=== PATIENT | male | born 1965 | race Caucasian/White ===

== ENCOUNTER 2023-02-13 09:07 | Inpatient (IN) | payer OTHER ==
[~2023-02-13] VITALS: Ht 177.8 cm; Wt 78.2 kg
[2023-02-13] VITALS (39 sets, daily range): BP systolic 100–151; BP diastolic 37–111; PULSE 22–65; RESP 13–55; O2SAT 95–100
[2023-02-13] MEDS ORDERED: ATROPINE 1MG SYG IVP ONE (09:30)
[2023-02-13 09:51] LABS: BASOPHILS # (AUTO) 0.06 K/uL (0.00-0.20); BASOPHILS % (AUTO) 0.7 % (0.0-5.0); EOSINOPHILS % (AUTO) 3.4 % (0.0-8.0); HEMATOCRIT 32.6 % (42-54); IMMATURE GRANULOCYTE ABSOLUTE 0.03 K/uL (0-1); LYMPHOCYTES # (AUTO) 2.4 K/uL (1.0-4.8); LYMPHOCYTES % (AUTO) 27.5 % (21.0-51.0); MEAN CORPUSCULAR HEMOGLOBIN 32.2 pg (27.0-33.0); MEAN CORPUSCULAR HGB CONC 32.8 g/dL (32.0-36.0); MEAN CORPUSCULAR VOLUME 98.2 fL (79-99); MONOCYTES # (AUTO) 0.7 K/uL (0.1-1.0); MONOCYTES % (AUTO) 8.4 % (3.0-13.0); NEUTROPHILS # (AUTO) 5.3 K/uL (1.8-7.7); NEUTROPHILS % (AUTO) 59.7 % (40.0-77.0); PLATELET COUNT (AUTO) 179 K/uL (130-400); RED BLOOD CELL COUNT(AUTO) 3.32 MIL/uL (4.50-6.20); RED CELL DISTRIBUTION WIDTH 11.8 % (11.0-15.5); WHITE BLOOD COUNT (AUTO) 8.8 K/uL (4.8-10.8)
[2023-02-13] MEDS ORDERED: ATROPINE 1MG SYG IVP SCH (10:00)
[2023-02-13 10:02] LABS: CREATININE 3.9 mg/dL (0.5-1.5); POTASSIUM 4.5 mmol/L (3.5-5.1)
[2023-02-13] MEDS ORDERED: CLOM25CA2 PO (10:03)
[2023-02-13] MEDS ORDERED: LITH300C3 PO (10:03)
[2023-02-13] MEDS ORDERED: METO200T49 PO (10:03)
[2023-02-13] MEDS ORDERED: ATOR10TA69 PO (10:03)
[2023-02-13] MEDS ORDERED: LISI40TA9 PO (10:03)
[2023-02-13] MEDS ORDERED: HYDR25TA PO (10:03)
[2023-02-13 10:15] LABS: THYROID STIMULATING HORMONE 11.46 uIU/mL (0.36-3.74)
[2023-02-13 11:38] LABS: APPEARANCE,URINE CLEAR (CLEAR); BILIRUBIN,URINE NEGATIVE (NEGATIVE); COLOR,URINE LIGHT-YELLOW (YELLOW); GLUCOSE, URINE (UA) NEGATIVE (NEGATIVE); KETONES,URINE NEGATIVE (NEGATIVE); LEUKOCYTE ESTERASE ,URINE NEGATIVE Leu/uL (NEGATIVE); NITRATE,URINE NEGATIVE (NEGATIVE); OCCULT BLOOD,URINE NEGATIVE (NEGATIVE); PROTEIN,URINE NEGATIVE (NEGATIVE); UROBILINOGEN,URINE 0.2 mg/dL (0.2-1.0)
[2023-02-13 11:40] LABS: ADD UA MICROSCOPIC NO
[2023-02-13] MEDS ORDERED: PHARMACY COMMUNICATION MISC PRN (14:00)
[2023-02-13] MEDS ORDERED: LORAZEPAM 2 MG/ML 1 ML VIAL IVP PRN (14:00)
[2023-02-13] MEDS ORDERED: CHLORDIAZEPOXIDE HCL 25 MG CAP PO PRN (14:00)
[2023-02-13] MEDS ORDERED: LACTATED RINGERS 1000ML 1,000 ML IV SCH (14:30)
[2023-02-13 14:38] LABS: AMPHET/METH SCREEN,URINE NEGATIVE (NEGATIVE); BARBITURATE SCREEN, URINE NEGATIVE (NEGATIVE); BENZODIAZEPINES SCREEN,URINE NEGATIVE (NEGATIVE); CANNABINOID SCREEN,URINE NEGATIVE (NEGATIVE); COCAINE SCREEN,URINE NEGATIVE (NEGATIVE); OPIATE SCREEN,URINE NEGATIVE (NEGATIVE); PHENCYCLIDINE SCREEN,URINE NEGATIVE (NEGATIVE)
[2023-02-13] MEDS: THIAMINE HCL 100 MG, FOLIC ACID 1 MG, M.V.I. IV [ADULT] 10 ML in 0.9%NACL 1000ML 1,000 ML IV SCH (15:24)
[2023-02-13 17:04] LABS: ALBUMIN 3.4 g/dL (3.5-5.0); BILIRUBIN,DIRECT 0.2 mg/dL (0.0-0.3); BILIRUBIN,TOTAL 0.3 mg/dL (0.2-1.0); TOTAL PROTEIN, SERUM 6.9 g/dL (6.0-8.3)
[2023-02-13] MEDS ORDERED: CHLORDIAZEPOXIDE HCL 25 MG CAP PO SCH (21:00)
[2023-02-13] MEDS ORDERED: 0.9% NACL 500ML IV.SOLN 500 ML IV ONE (23:00)
[2023-02-13] MEDS ORDERED: DOPAMINE HCL 400 MG/D5%-WATER 250 ML IV PRN (23:00)
[2023-02-13] MEDS: 0.9%NACL 1000ML 1,000 ML IV SCH ×2 (23:26→23:27)
[2023-02-14] VITALS (121 sets, daily range): BP systolic 79–149; BP diastolic 29–97; PULSE 23–118; RESP 8–118; O2SAT 99–100
[2023-02-14 00:49] LABS: CREATININE 3.1 mg/dL (0.5-1.5); POTASSIUM 4.7 mmol/L (3.5-5.1)
[2023-02-14 00:56] LABS: ALBUMIN 3.2 g/dL (3.5-5.0); BILIRUBIN,TOTAL 0.6 mg/dL (0.2-1.0); MAGNESIUM 2.8 mg/dL (1.80-2.40); TOTAL PROTEIN, SERUM 6.4 g/dL (6.0-8.3)
[2023-02-14 05:05] LABS: BASOPHILS # (AUTO) 0.05 K/uL (0.00-0.20); BASOPHILS % (AUTO) 0.6 % (0.0-5.0); EOSINOPHILS # (AUTO) 0.24 K/uL (0.00-0.70); EOSINOPHILS % (AUTO) 2.9 % (0.0-8.0); IMMATURE GRANULOCYTE ABSOLUTE 0.03 K/uL (0-1); LYMPHOCYTES # (AUTO) 1.9 K/uL (1.0-4.8); LYMPHOCYTES % (AUTO) 22.9 % (21.0-51.0); MEAN CORPUSCULAR HEMOGLOBIN 32.9 pg (27.0-33.0); MEAN CORPUSCULAR HGB CONC 33.3 g/dL (32.0-36.0); MEAN CORPUSCULAR VOLUME 98.7 fL (79-99); MONOCYTES # (AUTO) 0.7 K/uL (0.1-1.0); MONOCYTES % (AUTO) 8.2 % (3.0-13.0); NEUTROPHILS # (AUTO) 5.3 K/uL (1.8-7.7); PLATELET COUNT (AUTO) 178 K/uL (130-400); RED BLOOD CELL COUNT(AUTO) 3.04 MIL/uL (4.50-6.20); RED CELL DISTRIBUTION WIDTH 11.8 % (11.0-15.5); WHITE BLOOD COUNT (AUTO) 8.2 K/uL (4.8-10.8)
[2023-02-14 05:26] LABS: BILIRUBIN,TOTAL 0.5 mg/dL (0.2-1.0); CREATININE 2.8 mg/dL (0.5-1.5); MAGNESIUM 2.6 mg/dL (1.80-2.40); POTASSIUM 4.3 mmol/L (3.5-5.1); TOTAL PROTEIN, SERUM 6.2 g/dL (6.0-8.3)
[2023-02-14 07:40] LABS: BILIRUBIN,TOTAL 0.5 mg/dL (0.2-1.0); CREATININE 2.7 mg/dL (0.5-1.5); MAGNESIUM 2.5 mg/dL (1.80-2.40); POTASSIUM 3.9 mmol/L (3.5-5.1); TOTAL PROTEIN, SERUM 6.1 g/dL (6.0-8.3)
[2023-02-14] MEDS: FAMOTIDINE 20MG VIAL IV SCH (09:07)
[2023-02-14] MEDS ORDERED: POTASSIUM CHLORIDE 10MEQ/100ML 100 ML IV PRN ×2 (12:00)
[2023-02-14] MEDS ORDERED: PHARMACY COMMUNICATION MISC PRN (12:00)
[2023-02-14] MEDS: LORAZEPAM 2 MG/ML 1 ML VIAL IVP PRN ×5 (12:32→23:27)
[2023-02-14] MEDS: SODIUM BICARB 150 MEQ in DEXTROSE 5%-WATER 1,000 ML IV SCH (12:34)
[2023-02-14] MEDS: 0.9%NACL 1000ML 1,000 ML IV SCH ×2 (12:34→22:35)
[2023-02-14] MEDS: THIAMINE HCL 100 MG/ML 2ML VIAL IVP SCH (12:34)
[2023-02-14] MEDS: HEPARIN 5,000 UNIT VIAL SQ SCH ×2 (13:01→23:18)
[2023-02-14] MEDS: THIAMINE HCL 100 MG, FOLIC ACID 1 MG, M.V.I. IV [ADULT] 10 ML in 0.9%NACL 1000ML 1,000 ML IV SCH (15:46)
[2023-02-14 16:17] LABS: CREATININE 2.4 mg/dL (0.5-1.5); POTASSIUM 4.1 mmol/L (3.5-5.1)
[2023-02-14 18:42] LABS: CREATININE 2.3 mg/dL (0.5-1.5)
[2023-02-15] VITALS (106 sets, daily range): BP systolic 96–178; BP diastolic 55–100; PULSE 39–95; RESP 14–61; O2SAT 96–100
[2023-02-15] MEDS: LORAZEPAM 2 MG/ML 1 ML VIAL IVP PRN ×4 (01:29→10:31)
[2023-02-15 03:21] LABS: BASOPHILS # (AUTO) 0.02 K/uL (0.00-0.20); BASOPHILS % (AUTO) 0.3 % (0.0-5.0); EOSINOPHILS # (AUTO) 0.13 K/uL (0.00-0.70); EOSINOPHILS % (AUTO) 1.9 % (0.0-8.0); HEMATOCRIT 28.9 % (42-54); IMMATURE GRANULOCYTE ABSOLUTE 0.03 K/uL (0-1); LYMPHOCYTES % (AUTO) 14.3 % (21.0-51.0); MEAN CORPUSCULAR HEMOGLOBIN 32.9 pg (27.0-33.0); MEAN CORPUSCULAR HGB CONC 33.2 g/dL (32.0-36.0); MONOCYTES # (AUTO) 0.6 K/uL (0.1-1.0); MONOCYTES % (AUTO) 8.2 % (3.0-13.0); NEUTROPHILS # (AUTO) 5.2 K/uL (1.8-7.7); NEUTROPHILS % (AUTO) 74.9 % (40.0-77.0); PLATELET COUNT (AUTO) 164 K/uL (130-400); RED BLOOD CELL COUNT(AUTO) 2.92 MIL/uL (4.50-6.20); RED CELL DISTRIBUTION WIDTH 11.7 % (11.0-15.5); WHITE BLOOD COUNT (AUTO) 6.9 K/uL (4.8-10.8)
[2023-02-15 03:34] LABS: % IRON SATURATION 17.4 % (30-44)
[2023-02-15 03:44] LABS: ALBUMIN 2.9 g/dL (3.5-5.0); BILIRUBIN,TOTAL 0.4 mg/dL (0.2-1.0); CREATININE 2.1 mg/dL (0.5-1.5); MAGNESIUM 2.3 mg/dL (1.80-2.40); PHOSPHORUS 3.7 mg/dL (2.5-4.9); POTASSIUM 3.9 mmol/L (3.5-5.1); URIC ACID 11.1 mg/dL (2.6-7.2)
[2023-02-15] MEDS ORDERED: CHLORDIAZEPOXIDE HCL 25 MG CAP PO PRN (08:00)
[2023-02-15] MEDS ORDERED: PHARMACY COMMUNICATION MISC PRN (08:00)
[2023-02-15] MEDS: AMLODIPINE 5 MG TAB PO SCH (08:17)
[2023-02-15] MEDS: FAMOTIDINE 20MG VIAL IV SCH (08:17)
[2023-02-15] MEDS: THIAMINE HCL 100 MG/ML 2ML VIAL IVP SCH ×2 (08:18→16:29)
[2023-02-15] MEDS: 0.9%NACL 1000ML 1,000 ML IV SCH ×3 (08:18→22:56)
[2023-02-15] MEDS: SODIUM BICARB 150 MEQ in DEXTROSE 5%-WATER 1,000 ML IV SCH (08:18)
[2023-02-15] MEDS: FOLIC ACID 5 MG/ML VIAL IV SCH (08:29)
[2023-02-15] MEDS ORDERED: DEXMEDETOMIDINE 400MCG/NS100ML IV SCH (10:30)
[2023-02-15] MEDS: HEPARIN 5,000 UNIT VIAL SQ SCH (11:36)
[2023-02-15] MEDS: THIAMINE HCL 100 MG, FOLIC ACID 1 MG, M.V.I. IV [ADULT] 10 ML in 0.9%NACL 1000ML 1,000 ML IV SCH (16:28)
[2023-02-15] MEDS ORDERED: DIAZEPAM 5 MG/ML 2 ML SYG IV SCH (16:30)
[2023-02-15 19:26] LABS: CREATININE 1.8 mg/dL (0.5-1.5)
[2023-02-15] MEDS: CHLORDIAZEPOXIDE HCL 25 MG CAP PO SCH (21:00)
[2023-02-15] MEDS: DEXMEDETOMIDINE 400MCG/NS100ML IV SCH (21:48)
[2023-02-16] VITALS (29 sets, daily range): BP systolic 72–192; BP diastolic 26–106; PULSE 34–84; RESP 14–48; O2SAT 95–100
[2023-02-16] MEDS: HEPARIN 5,000 UNIT VIAL SQ SCH ×2 (00:36→11:14)
[2023-02-16] MEDS: THIAMINE HCL 100 MG/ML 2ML VIAL IVP SCH ×3 (00:37→18:00)
[2023-02-16 06:38] LABS: BASOPHILS # (AUTO) 0.02 K/uL (0.00-0.20); BASOPHILS % (AUTO) 0.2 % (0.0-5.0); EOSINOPHILS # (AUTO) 0.01 K/uL (0.00-0.70); EOSINOPHILS % (AUTO) 0.1 % (0.0-8.0); HEMATOCRIT 29.9 % (42-54); IMMATURE GRANULOCYTE ABSOLUTE 0.06 K/uL (0-1); LYMPHOCYTES % (AUTO) 10.4 % (21.0-51.0); MEAN CORPUSCULAR HGB CONC 32.8 g/dL (32.0-36.0); MEAN CORPUSCULAR VOLUME 100.7 fL (79-99); MONOCYTES # (AUTO) 0.8 K/uL (0.1-1.0); MONOCYTES % (AUTO) 8.7 % (3.0-13.0); NEUTROPHILS # (AUTO) 7.6 K/uL (1.8-7.7); PLATELET COUNT (AUTO) 150 K/uL (130-400); RED BLOOD CELL COUNT(AUTO) 2.97 MIL/uL (4.50-6.20); RED CELL DISTRIBUTION WIDTH 11.9 % (11.0-15.5); WHITE BLOOD COUNT (AUTO) 9.5 K/uL (4.8-10.8)
[2023-02-16 06:43] LABS: ALANINE AMINOTRANSFERASE 24 U/L (12-78); ALCOHOL, BLOOD < 3 mg/dL (0-10); AMMONIA 22 umol/L (11-32); ASPARTATE AMINOTRANSFERASE 18 U/L (10-37); BILIRUBIN,TOTAL 0.5 mg/dL (0.2-1.0); CARBON DIOXIDE 24 mmol/L (21-32); CHLORIDE 113 mmol/L (101-111); CREATININE 1.7 mg/dL (0.5-1.5); GLOMERULAR FILTR. RATE CALC 46 mL/min (>90); GLUCOSE,RANDOM 159 mg/dL (70-105); POTASSIUM 3.9 mmol/L (3.5-5.1); SODIUM SERUM 146 mmol/L (136-145); TOTAL PROTEIN, SERUM 6.6 g/dL (6.0-8.3); UREA NITROGEN, BLOOD 20 mg/dL (7-18)
[2023-02-16] MEDS ORDERED: MORPHINE 2 MG SYG ONE (09:03)
[2023-02-16] MEDS ORDERED: MORPHINE 2 MG SYG IVP ONE (09:07)
[2023-02-16] MEDS: FOLIC ACID 5 MG/ML VIAL IV SCH (09:56)
[2023-02-16] MEDS: FAMOTIDINE 20MG VIAL IV SCH (09:56)
[2023-02-16] MEDS: HALOPERIDOL INJ 5 MG/ML VIAL IM SCH (09:57)
[2023-02-16] MEDS: CHLORDIAZEPOXIDE HCL 25 MG CAP PO SCH ×3 (10:03→20:10)
[2023-02-16] MEDS: 0.9%NACL 1000ML 1,000 ML IV SCH ×2 (10:03→18:00)
[2023-02-16] MEDS ORDERED: ATROPINE 1MG SYG IVP PRN (11:00)
[2023-02-16] MEDS: AMLODIPINE 5 MG TAB PO SCH (11:02)
[2023-02-16] MEDS: ATROPINE 1MG SYG IVP PRN (11:08)
[2023-02-16] MEDS: DEXMEDETOMIDINE 400MCG/NS100ML IV SCH ×2 (13:11→20:08)
[2023-02-16] MEDS: ONDANSETRON 4MG INJ IV PRN (14:04)
[2023-02-16] MEDS: ACETAMINOPHEN 500 MG TABLET PO PRN (14:04)
[2023-02-16] MEDS: MAGNESIUM 2GM PREMIX 50ML 50 ML IV PRN (15:09)
[2023-02-16] MEDS: IRON SUCROSE COMPLEX 300 MG in 0.9% NACL 250ML 250 ML IV SCH (15:23)
[2023-02-16] MEDS: DIAZEPAM 5 MG/ML 2 ML SYG IV SCH (18:35)
[2023-02-16] MEDS: HALOPERIDOL INJ 5 MG/ML VIAL IM PRN (21:04)
[2023-02-17] VITALS (30 sets, daily range): BP systolic 115–169; BP diastolic 55–92; PULSE 41–69; RESP 17–30; O2SAT 92–94
[2023-02-17] MEDS: THIAMINE HCL 100 MG/ML 2ML VIAL IVP SCH ×3 (00:14→16:32)
[2023-02-17] MEDS: HEPARIN 5,000 UNIT VIAL SQ SCH ×2 (00:14→13:13)
[2023-02-17] MEDS: DEXMEDETOMIDINE 400MCG/NS100ML IV SCH ×7 (00:31→22:04)
[2023-02-17] MEDS: ATROPINE 1MG SYG IVP PRN (01:19)
[2023-02-17] MEDS: 0.9%NACL 1000ML 1,000 ML IV SCH (02:19)
[2023-02-17] MEDS: DIAZEPAM 5 MG/ML 2 ML SYG IV SCH ×2 (03:07→10:20)
[2023-02-17 03:36] LABS: BASOPHILS # (AUTO) 0.03 K/uL (0.00-0.20); BASOPHILS % (AUTO) 0.2 % (0.0-5.0); EOSINOPHILS # (AUTO) 0.08 K/uL (0.00-0.70); EOSINOPHILS % (AUTO) 0.6 % (0.0-8.0); HEMATOCRIT 29.6 % (42-54); LYMPHOCYTES # (AUTO) 0.9 K/uL (1.0-4.8); LYMPHOCYTES % (AUTO) 7.6 % (21.0-51.0); MEAN CORPUSCULAR HEMOGLOBIN 32.7 pg (27.0-33.0); MEAN CORPUSCULAR HGB CONC 32.8 g/dL (32.0-36.0); MEAN CORPUSCULAR VOLUME 99.7 fL (79-99); MONOCYTES # (AUTO) 0.7 K/uL (0.1-1.0); MONOCYTES % (AUTO) 5.8 % (3.0-13.0); NEUTROPHILS # (AUTO) 10.5 K/uL (1.8-7.7); PLATELET COUNT (AUTO) 143 K/uL (130-400); RED BLOOD CELL COUNT(AUTO) 2.97 MIL/uL (4.50-6.20); RED CELL DISTRIBUTION WIDTH 11.9 % (11.0-15.5); WHITE BLOOD COUNT (AUTO) 12.4 K/uL (4.8-10.8)
[2023-02-17 03:52] LABS: ALBUMIN 2.6 g/dL (3.5-5.0); BILIRUBIN,TOTAL 0.6 mg/dL (0.2-1.0); CREATININE 1.6 mg/dL (0.5-1.5); MAGNESIUM 2.1 mg/dL (1.80-2.40); PHOSPHORUS 3.5 mg/dL (2.5-4.9); POTASSIUM 3.9 mmol/L (3.5-5.1); TOTAL PROTEIN, SERUM 6.4 g/dL (6.0-8.3)
[2023-02-17] MEDS: HALOPERIDOL INJ 5 MG/ML VIAL IM PRN (08:03)
[2023-02-17] MEDS: IRON SUCROSE COMPLEX 300 MG in 0.9% NACL 250ML 250 ML IV SCH (08:23)
[2023-02-17] MEDS: FAMOTIDINE 20MG VIAL IV SCH (08:23)
[2023-02-17] MEDS: CHLORDIAZEPOXIDE HCL 25 MG CAP PO SCH (08:24)
[2023-02-17] MEDS: FOLIC ACID 5 MG/ML VIAL IV SCH (08:24)
[2023-02-17] MEDS: AMLODIPINE 5 MG TAB PO SCH (08:24)
[2023-02-17] MEDS: HALOPERIDOL INJ 5 MG/ML VIAL IM SCH ×2 (08:55→13:14)
[2023-02-17] MEDS: ONDANSETRON 4MG INJ IV PRN (13:10)
[2023-02-17] MEDS ORDERED: CHLORDIAZEPOXIDE HCL 25 MG CAP PO SCH (15:00)
[2023-02-17] MEDS: DIAZEPAM 5 MG TABLET NG SCH (16:32)
[2023-02-17] MEDS ORDERED: HALOPERIDOL 1 MG TABLET ONE (20:29)
[2023-02-17] MEDS: HALOPERIDOL 1 MG TABLET NG SCH (22:00)
[2023-02-18] VITALS (25 sets, daily range): BP systolic 114–178; BP diastolic 47–112; PULSE 32–88; RESP 14–40; O2SAT 95–99
[2023-02-18] MEDS: DIAZEPAM 5 MG TABLET NG SCH ×3 (00:53→17:01)
[2023-02-18] MEDS: THIAMINE HCL 100 MG/ML 2ML VIAL IVP SCH ×2 (00:54→07:59)
[2023-02-18] MEDS: HEPARIN 5,000 UNIT VIAL SQ SCH ×2 (00:55→12:54)
[2023-02-18 04:10] LABS: HEMATOCRIT 31.7 % (42-54); MEAN CORPUSCULAR HEMOGLOBIN 32.9 pg (27.0-33.0); MEAN CORPUSCULAR HGB CONC 32.2 g/dL (32.0-36.0); MEAN CORPUSCULAR VOLUME 102.3 fL (79-99); RED BLOOD CELL COUNT(AUTO) 3.1 MIL/uL (4.50-6.20); RED CELL DISTRIBUTION WIDTH 12.1 % (11.0-15.5); WHITE BLOOD COUNT (AUTO) 10.2 K/uL (4.8-10.8)
[2023-02-18 04:20] LABS: CREATININE 1.6 mg/dL (0.5-1.5); MAGNESIUM 1.8 mg/dL (1.80-2.40); POTASSIUM 3.5 mmol/L (3.5-5.1)
[2023-02-18] MEDS: DEXMEDETOMIDINE 400MCG/NS100ML IV SCH (04:42)
[2023-02-18] MEDS: HALOPERIDOL 1 MG TABLET NG SCH ×3 (05:23→22:14)
[2023-02-18] MEDS: FAMOTIDINE 20MG VIAL IV SCH (07:58)
[2023-02-18] MEDS: AMLODIPINE 5 MG TAB PO SCH (07:59)
[2023-02-18] MEDS: HALOPERIDOL INJ 5 MG/ML VIAL IM PRN ×2 (09:22→17:27)
[2023-02-18] MEDS: IRON SUCROSE COMPLEX 300 MG in 0.9% NACL 250ML 250 ML IV SCH (09:32)
[2023-02-18] MEDS: CARVEDILOL 12.5 MG TABLET PO SCH ×2 (09:32→22:15)
[2023-02-18] MEDS ORDERED: POLYETHYLENE GLYCOL 3350 17 GM POWD.PACK PO ONE (13:00)
[2023-02-18] MEDS: ACETAMINOPHEN 500 MG TABLET PO PRN (13:40)
[2023-02-18] MEDS: LACTULOSE 20 GM/30 ML UDCUP PO PRN (17:27)
[2023-02-18] MEDS: POTASSIUM CHLORIDE 10% ELIXIR 20 MEQ/15 ML UDCUP PO PRN (17:31)
[2023-02-18] MEDS: MAGNESIUM 2GM PREMIX 50ML 50 ML IV PRN (17:34)
[2023-02-19] VITALS (26 sets, daily range): BP systolic 131–194; BP diastolic 72–115; PULSE 65–100; RESP 16–27; O2SAT 97–99
[2023-02-19] MEDS: DIAZEPAM 5 MG TABLET NG SCH ×4 (00:20→23:59)
[2023-02-19] MEDS: HEPARIN 5,000 UNIT VIAL SQ SCH ×3 (00:21→23:58)
[2023-02-19] MEDS: HALOPERIDOL INJ 5 MG/ML VIAL IM PRN ×2 (00:23→20:21)
[2023-02-19 04:35] LABS: BASOPHILS # (AUTO) 0.04 K/uL (0.00-0.20); BASOPHILS % (AUTO) 0.4 % (0.0-5.0); EOSINOPHILS # (AUTO) 0.34 K/uL (0.00-0.70); EOSINOPHILS % (AUTO) 3.7 % (0.0-8.0); HEMATOCRIT 30.8 % (42-54); IMMATURE GRANULOCYTE ABSOLUTE 0.12 K/uL (0-1); LYMPHOCYTES # (AUTO) 1.6 K/uL (1.0-4.8); LYMPHOCYTES % (AUTO) 17.1 % (21.0-51.0); MEAN CORPUSCULAR HEMOGLOBIN 32.3 pg (27.0-33.0); MEAN CORPUSCULAR HGB CONC 32.5 g/dL (32.0-36.0); MEAN CORPUSCULAR VOLUME 99.4 fL (79-99); MONOCYTES # (AUTO) 0.9 K/uL (0.1-1.0); MONOCYTES % (AUTO) 9.4 % (3.0-13.0); NEUTROPHILS # (AUTO) 6.2 K/uL (1.8-7.7); NEUTROPHILS % (AUTO) 68.1 % (40.0-77.0); NUCLEATED RED BLOOD CELLS 0.2 % (0.0-0.19); PLATELET COUNT (AUTO) 162 K/uL (130-400); RED CELL DISTRIBUTION WIDTH 12.1 % (11.0-15.5); WHITE BLOOD COUNT (AUTO) 9.2 K/uL (4.8-10.8)
[2023-02-19 04:45] LABS: ALBUMIN 2.6 g/dL (3.5-5.0); BILIRUBIN,TOTAL 0.6 mg/dL (0.2-1.0); CREATININE 1.6 mg/dL (0.5-1.5); PHOSPHORUS 3.4 mg/dL (2.5-4.9); POTASSIUM 3.6 mmol/L (3.5-5.1); TOTAL PROTEIN, SERUM 6.6 g/dL (6.0-8.3)
[2023-02-19] MEDS: HALOPERIDOL 1 MG TABLET NG SCH ×3 (05:40→22:14)
[2023-02-19] MEDS: FAMOTIDINE 20MG VIAL IV SCH (08:17)
[2023-02-19] MEDS: CARVEDILOL 12.5 MG TABLET PO SCH ×2 (08:18→20:22)
[2023-02-19] MEDS: POLYETHYLENE GLYCOL 3350 17 GM POWD.PACK PO SCH (08:18)
[2023-02-19] MEDS: AMLODIPINE 5 MG TAB PO SCH (08:19)
[2023-02-19 09:50] LABS: SARS-CoV-2, RNA, NAAT NEGATIVE SARS CoV-2 (NEGATIVE)
[2023-02-19 10:02] LABS: INFLUENZA TYPE A Negative For Type A (NEGATIVE); INFLUENZA TYPE B Negative For Type B (NEGATIVE)
[2023-02-19 13:01] LABS: CREATININE,URINE RANDOM 31 mg/dL (30-135); SODIUM,URINE RANDOM 131 mmol/l (40-220)
[2023-02-20] VITALS (32 sets, daily range): BP systolic 112–157; BP diastolic 58–91; PULSE 61–88; RESP 18–37; O2SAT 24–99
[2023-02-20 04:01] LABS: HEMATOCRIT 34.4 % (42-54); MEAN CORPUSCULAR HEMOGLOBIN 32.4 pg (27.0-33.0); MEAN CORPUSCULAR HGB CONC 32.8 g/dL (32.0-36.0); MEAN CORPUSCULAR VOLUME 98.6 fL (79-99); PLATELET COUNT (AUTO) 215 K/uL (130-400); RED BLOOD CELL COUNT(AUTO) 3.49 MIL/uL (4.50-6.20); RED CELL DISTRIBUTION WIDTH 12.1 % (11.0-15.5); WHITE BLOOD COUNT (AUTO) 11.7 K/uL (4.8-10.8)
[2023-02-20 04:13] LABS: ALBUMIN 2.4 g/dL (3.5-5.0); BILIRUBIN,TOTAL 0.6 mg/dL (0.2-1.0); CREATININE 1.8 mg/dL (0.5-1.5); MAGNESIUM 1.9 mg/dL (1.80-2.40); PHOSPHORUS 4.1 mg/dL (2.5-4.9); POTASSIUM 3.4 mmol/L (3.5-5.1); TOTAL PROTEIN, SERUM 6.8 g/dL (6.0-8.3)
[2023-02-20 04:23] LABS: BAND NEUTROPHILS % (MANUAL) 3 % (0-2); LYMPHOCYTES % (MANUAL) 13 % (22-44); MAN.DIFF COMMENT-IMPRESSION MANUAL DIFFERENTIAL; MONOCYTES % (MANUAL) 11 % (2-9); SEGMENTED NEUTROPHILS % 73 % (40-70); TOTAL CELLS COUNTED 100
[2023-02-20 04:24] LABS: PLATELET MORPHOLOGY COMMENT ADEQUATE; WBC MORPHOLOGY CONSISTENT W/DIFF
[2023-02-20] MEDS: HALOPERIDOL 1 MG TABLET NG SCH ×3 (05:49→21:07)
[2023-02-20] MEDS: DIAZEPAM 5 MG TABLET NG SCH ×2 (08:02→17:42)
[2023-02-20] MEDS: CARVEDILOL 12.5 MG TABLET PO SCH ×2 (08:03→21:02)
[2023-02-20] MEDS: AMLODIPINE 5 MG TAB PO SCH (08:04)
[2023-02-20] MEDS: FAMOTIDINE 20MG VIAL IV SCH (08:04)
[2023-02-20] MEDS: POLYETHYLENE GLYCOL 3350 17 GM POWD.PACK PO SCH (08:16)
[2023-02-20 09:24] LABS: INR 0.96 (0.85-1.15); PROTHROMBIN TIME 11.2 SEC (9.6-11.6)
[2023-02-20 11:54] LABS: ABG BASE EXCESS 1.1 mmol/L (-2.0-3.0); ABG HCO3 23.8 mmol/L (21.0-28.0); ABG OXYGEN SATURATION 91.1 % (95.0-99.0); ABG PCO2 32 mmHg (35-48); ABG PH 7.494 (7.35-7.450); CARBON MONOXIDE 0.4; HHb 8.8; PO2, ARTERIAL BG 56.9 mmHg (83.0-108.0)
[2023-02-20] MEDS: HEPARIN 5,000 UNIT VIAL SQ SCH (13:08)
[2023-02-20] MEDS ORDERED: VANCOMYCIN PROTOCOL PER PHARMACY IV SCH (17:00)
[2023-02-20] MEDS ORDERED: VANCOMYCIN 2GM/500 ML BAG 500 ML IV ONE (17:00)
[2023-02-20] MEDS ORDERED: VANCOMYCIN 1.25 GM/250 ML BAG 250 ML IV SCH (17:00)
[2023-02-20] MEDS: CEFEPIME HCL 1 GM VIAL IVPB SCH (17:44)
[2023-02-20 17:47] LABS: APPEARANCE,URINE CLEAR (CLEAR); BILIRUBIN,URINE NEGATIVE (NEGATIVE); COLOR,URINE YELLOW (YELLOW); GLUCOSE, URINE (UA) NEGATIVE (NEGATIVE); KETONES,URINE NEGATIVE (NEGATIVE); LEUKOCYTE ESTERASE ,URINE 500 Leu/uL (NEGATIVE); NITRATE,URINE NEGATIVE (NEGATIVE); OCCULT BLOOD,URINE LARGE (NEGATIVE); PH,URINE 5.5 (5.0-8.0); PROTEIN,URINE 70 mg/dL (NEGATIVE); UROBILINOGEN,URINE 3 mg/dL (0.2-1.0)
[2023-02-20 17:49] LABS: ADD UA MICROSCOPIC YES
[2023-02-20 17:51] LABS: BACTERIA,URINE FEW /HPF (None Seen); MUCUS,URINE RARE LPF (None Seen); RBC,URINE 26-50 /HPF (0-1); SQUAMOUS EPITHELIAL CELL,UR RARE /HPF (0-2); WBC,URINE 51-100 /HPF (0-1); YEAST,URINE BUDDING RARE /HPF (None Seen)
[2023-02-20] MEDS: IPRATROPIUM/ALBUTEROL SULFATE 3 ML SOLUTION IH SCH ×2 (19:22→23:55)
[2023-02-20] MEDS: ACETAMINOPHEN 500 MG TABLET PO PRN (19:44)
[2023-02-20] MEDS: HALOPERIDOL INJ 5 MG/ML VIAL IM PRN (19:44)
[2023-02-20] MEDS ORDERED: ZOSYN 3.375GM +NS 50ML IV SCH (20:00)
[2023-02-20] MEDS: METRONIDAZOLE 500MG/100ML BAG 100 ML IVPB SCH (21:08)
[2023-02-21] VITALS (19 sets, daily range): BP systolic 103–143; BP diastolic 37–88; PULSE 56–112; RESP 13–102; O2SAT 97–100
[2023-02-21] MEDS: HEPARIN 5,000 UNIT VIAL SQ SCH ×2 (00:46→11:27)
[2023-02-21] MEDS: DIAZEPAM 5 MG TABLET NG SCH (00:46)
[2023-02-21] MEDS: CEFEPIME HCL 1 GM VIAL IVPB SCH ×2 (04:48→17:21)
[2023-02-21] MEDS: ACETAMINOPHEN 500 MG TABLET PO PRN (04:49)
[2023-02-21 05:27] LABS: BASOPHILS # (AUTO) 0.03 K/uL (0.00-0.20); BASOPHILS % (AUTO) 0.2 % (0.0-5.0); EOSINOPHILS # (AUTO) 0.09 K/uL (0.00-0.70); EOSINOPHILS % (AUTO) 0.7 % (0.0-8.0); HEMATOCRIT 31.8 % (42-54); IMMATURE GRANULOCYTE ABSOLUTE 0.14 K/uL (0-1); LYMPHOCYTES # (AUTO) 1.7 K/uL (1.0-4.8); LYMPHOCYTES % (AUTO) 12.1 % (21.0-51.0); MEAN CORPUSCULAR HEMOGLOBIN 32.2 pg (27.0-33.0); MEAN CORPUSCULAR HGB CONC 31.4 g/dL (32.0-36.0); MEAN CORPUSCULAR VOLUME 102.3 fL (79-99); MONOCYTES # (AUTO) 1.5 K/uL (0.1-1.0); MONOCYTES % (AUTO) 11.2 % (3.0-13.0); NEUTROPHILS # (AUTO) 10.3 K/uL (1.8-7.7); NEUTROPHILS % (AUTO) 74.8 % (40.0-77.0); PLATELET COUNT (AUTO) 206 K/uL (130-400); RED BLOOD CELL COUNT(AUTO) 3.11 MIL/uL (4.50-6.20); RED CELL DISTRIBUTION WIDTH 12.2 % (11.0-15.5); WHITE BLOOD COUNT (AUTO) 13.7 K/uL (4.8-10.8)
[2023-02-21 05:40] LABS: AMMONIA < 10 umol/L (11-32); CARBON DIOXIDE 26 mmol/L (21-32); CHLORIDE 106 mmol/L (101-111); GLOMERULAR FILTR. RATE CALC 38 mL/min (>90); GLUCOSE,RANDOM 149 mg/dL (70-105); POTASSIUM 3.7 mmol/L (3.5-5.1); SODIUM SERUM 139 mmol/L (136-145); UREA NITROGEN, BLOOD 32 mg/dL (7-18)
[2023-02-21] MEDS: METRONIDAZOLE 500MG/100ML BAG 100 ML IVPB SCH ×3 (06:27→21:49)
[2023-02-21] MEDS: HALOPERIDOL 1 MG TABLET NG SCH ×3 (06:28→22:00)
[2023-02-21] MEDS: IPRATROPIUM/ALBUTEROL SULFATE 3 ML SOLUTION IH SCH ×4 (06:51→23:31)
[2023-02-21] MEDS: CARVEDILOL 12.5 MG TABLET PO SCH ×2 (07:27→21:48)
[2023-02-21] MEDS: DIAZEPAM 2 MG TAB NG SCH ×2 (07:54→16:38)
[2023-02-21] MEDS: FAMOTIDINE 20MG VIAL IV SCH (07:54)
[2023-02-21] MEDS: POLYETHYLENE GLYCOL 3350 17 GM POWD.PACK PO SCH (07:56)
[2023-02-21] MEDS: AMLODIPINE 5 MG TAB PO SCH (07:58)
[2023-02-21] MEDS ORDERED: LACTULOSE 20 GM/30 ML UDCUP PO PRN (11:00)
[2023-02-21] MEDS: LACTULOSE 20 GM/30 ML UDCUP PO PRN (11:26)
[2023-02-21] MEDS ORDERED: COMPOUND IV REFRIGERATED 1 EACH IVSOLN MISC PRN ×2 (13:00→13:30)
[2023-02-21 13:28] LABS: AMYLASE 108 U/L (25-115)
[2023-02-21] MEDS: M V I IV SCH (15:39)
[2023-02-21] MEDS: THIAMINE HCL IV SCH (15:39)
[2023-02-21] MEDS: FOLIC ACID IV SCH (15:39)
[2023-02-21] MEDS: [UNRECOGNIZED DRUG - OTHER] IV SCH (15:39)
[2023-02-21] MEDS: VANCOMYCIN 1.25 GM/250 ML BAG 250 ML IV SCH (16:43)
[2023-02-22] VITALS (15 sets, daily range): BP systolic 108–143; BP diastolic 55–78; PULSE 60–81; RESP 16–23; TEMP 100.3; O2SAT 96–97
[2023-02-22] MEDS: DIAZEPAM 2 MG TAB NG SCH ×2 (00:30→08:30)
[2023-02-22] MEDS: ACETAMINOPHEN 500 MG TABLET PO PRN (01:00)
[2023-02-22] MEDS: HEPARIN 5,000 UNIT VIAL SQ SCH ×2 (01:00→11:55)
[2023-02-22] MEDS: CEFEPIME HCL 1 GM VIAL IVPB SCH ×2 (05:27→17:40)
[2023-02-22] MEDS: METRONIDAZOLE 500MG/100ML BAG 100 ML IVPB SCH ×2 (05:28→16:38)
[2023-02-22 05:59] LABS: BASOPHILS # (AUTO) 0.05 K/uL (0.00-0.20); BASOPHILS % (AUTO) 0.4 % (0.0-5.0); EOSINOPHILS # (AUTO) 0.39 K/uL (0.00-0.70); EOSINOPHILS % (AUTO) 3.1 % (0.0-8.0); HEMATOCRIT 30.3 % (42-54); IMMATURE GRANULOCYTE ABSOLUTE 0.16 K/uL (0-1); LYMPHOCYTES # (AUTO) 2.2 K/uL (1.0-4.8); LYMPHOCYTES % (AUTO) 17.5 % (21.0-51.0); MEAN CORPUSCULAR HEMOGLOBIN 33.6 pg (27.0-33.0); MEAN CORPUSCULAR HGB CONC 31.7 g/dL (32.0-36.0); MEAN CORPUSCULAR VOLUME 105.9 fL (79-99); MONOCYTES # (AUTO) 1.5 K/uL (0.1-1.0); MONOCYTES % (AUTO) 11.9 % (3.0-13.0); NEUTROPHILS # (AUTO) 8.3 K/uL (1.8-7.7); NEUTROPHILS % (AUTO) 65.8 % (40.0-77.0); PLATELET COUNT (AUTO) 218 K/uL (130-400); RED BLOOD CELL COUNT(AUTO) 2.86 MIL/uL (4.50-6.20); RED CELL DISTRIBUTION WIDTH 12.4 % (11.0-15.5); WHITE BLOOD COUNT (AUTO) 12.7 K/uL (4.8-10.8)
[2023-02-22] MEDS: HALOPERIDOL 1 MG TABLET NG SCH (06:00)
[2023-02-22 06:22] LABS: BAND NEUTROPHILS % (MANUAL) 2 % (0-2); EOSINOPHILS % (MANUAL) 7 % (1-6); LYMPHOCYTES % (MANUAL) 19 % (22-44); MONOCYTES % (MANUAL) 6 % (2-9); SEGMENTED NEUTROPHILS % 66 % (40-70); TOTAL CELLS COUNTED 100
[2023-02-22 06:23] LABS: MAN.DIFF COMMENT-IMPRESSION MANUAL DIFFERENTIAL; PLATELET MORPHOLOGY COMMENT ADEQUATE; WBC MORPHOLOGY CONSISTENT W/DIFF
[2023-02-22 06:29] LABS: ALBUMIN 1.8 g/dL (3.5-5.0); BILIRUBIN,DIRECT 0.1 mg/dL (0.0-0.3); BILIRUBIN,TOTAL 0.2 mg/dL (0.2-1.0); CREATININE 1.6 mg/dL (0.5-1.5); MAGNESIUM 2.1 mg/dL (1.80-2.40); POTASSIUM 3.8 mmol/L (3.5-5.1); TOTAL PROTEIN, SERUM 6.2 g/dL (6.0-8.3)
[2023-02-22] MEDS: IPRATROPIUM/ALBUTEROL SULFATE 3 ML SOLUTION IH SCH ×4 (06:32→23:15)
[2023-02-22] MEDS: AMLODIPINE 5 MG TAB PO SCH (11:24)
[2023-02-22] MEDS: CARVEDILOL 12.5 MG TABLET PO SCH ×2 (11:24→21:59)
[2023-02-22] MEDS: POLYETHYLENE GLYCOL 3350 17 GM POWD.PACK PO SCH (11:24)
[2023-02-22] MEDS: FAMOTIDINE 20MG VIAL IV SCH (11:24)
[2023-02-22] MEDS ORDERED: DIAZEPAM 2 MG TAB NG PRN (14:30)
[2023-02-22] MEDS: FOLIC ACID IV SCH (16:38)
[2023-02-22] MEDS: M V I IV SCH (16:38)
[2023-02-22] MEDS: [UNRECOGNIZED DRUG - OTHER] IV SCH (16:38)
[2023-02-22] MEDS: THIAMINE HCL IV SCH (16:38)
[2023-02-22] MEDS: VANCOMYCIN 1.25 GM/250 ML BAG 250 ML IV SCH (17:41)
[2023-02-22] MEDS ORDERED: VANCOMYCIN 1.5 GM/250 ML BAG 250 ML IV SCH (18:30)
[2023-02-22] MEDS: ZOSYN 3.375GM +NS 50ML IV SCH (22:30)
[2023-02-23] VITALS (12 sets, daily range): BP systolic 125–152; BP diastolic 67–89; PULSE 65–83; RESP 16–24; O2SAT 97–98
[2023-02-23] MEDS: HEPARIN 5,000 UNIT VIAL SQ SCH ×2 (01:13→14:00)
[2023-02-23] MEDS: HALOPERIDOL INJ 5 MG/ML VIAL IM PRN (02:22)
[2023-02-23 04:40] LABS: HEMATOCRIT 31.5 % (42-54); MEAN CORPUSCULAR HGB CONC 31.1 g/dL (32.0-36.0); MEAN CORPUSCULAR VOLUME 102.9 fL (79-99); RED BLOOD CELL COUNT(AUTO) 3.06 MIL/uL (4.50-6.20); RED CELL DISTRIBUTION WIDTH 12.1 % (11.0-15.5); WHITE BLOOD COUNT (AUTO) 11.5 K/uL (4.8-10.8)
[2023-02-23 05:12] LABS: ALBUMIN 1.9 g/dL (3.5-5.0); BILIRUBIN,DIRECT 0.1 mg/dL (0.0-0.3); BILIRUBIN,TOTAL 0.3 mg/dL (0.2-1.0); CREATININE 1.6 mg/dL (0.5-1.5); TOTAL PROTEIN, SERUM 6.6 g/dL (6.0-8.3)
[2023-02-23] MEDS: ZOSYN 3.375GM +NS 50ML IV SCH ×3 (05:23→21:34)
[2023-02-23] MEDS: IPRATROPIUM/ALBUTEROL SULFATE 3 ML SOLUTION IH SCH ×4 (06:47→23:17)
[2023-02-23] MEDS: POLYETHYLENE GLYCOL 3350 17 GM POWD.PACK PO SCH (10:10)
[2023-02-23] MEDS: FAMOTIDINE 20MG VIAL IV SCH (10:11)
[2023-02-23] MEDS: AMLODIPINE 5 MG TAB PO SCH (10:11)
[2023-02-23] MEDS: CARVEDILOL 12.5 MG TABLET PO SCH ×2 (10:11→21:26)
[2023-02-23] MEDS: [UNRECOGNIZED DRUG - OTHER] IV SCH (15:15)
[2023-02-23] MEDS: THIAMINE HCL IV SCH (15:15)
[2023-02-23] MEDS: M V I IV SCH (15:15)
[2023-02-23] MEDS: FOLIC ACID IV SCH (15:15)
[2023-02-23] MEDS ORDERED: VANCOMYCIN 1.5 GM/250 ML BAG 250 ML IV SCH (18:30)
[2023-02-24] VITALS (14 sets, daily range): BP systolic 113–186; BP diastolic 61–77; PULSE 63–87; RESP 16–24; O2SAT 96–100
[2023-02-24] MEDS: HEPARIN 5,000 UNIT VIAL SQ SCH ×3 (00:40→23:55)
[2023-02-24 01:09] LABS: CREATININE 1.4 mg/dL (0.5-1.5); POTASSIUM 3.8 mmol/L (3.5-5.1)
[2023-02-24 04:20] LABS: HEMATOCRIT 27.5 % (42-54); MEAN CORPUSCULAR HEMOGLOBIN 32.7 pg (27.0-33.0); MEAN CORPUSCULAR HGB CONC 32.4 g/dL (32.0-36.0); MEAN CORPUSCULAR VOLUME 101.1 fL (79-99); RED BLOOD CELL COUNT(AUTO) 2.72 MIL/uL (4.50-6.20); WHITE BLOOD COUNT (AUTO) 9.5 K/uL (4.8-10.8)
[2023-02-24 04:46] LABS: ALBUMIN 1.7 g/dL (3.5-5.0); BILIRUBIN,TOTAL 0.2 mg/dL (0.2-1.0); CREATININE 1.2 mg/dL (0.5-1.5); MAGNESIUM 1.7 mg/dL (1.80-2.40); POTASSIUM 3.4 mmol/L (3.5-5.1); TOTAL PROTEIN, SERUM 5.8 g/dL (6.0-8.3)
[2023-02-24] MEDS: POTASSIUM CHLORIDE 10% ELIXIR 20 MEQ/15 ML UDCUP PO PRN ×2 (05:12→07:44)
[2023-02-24] MEDS: ZOSYN 3.375GM +NS 50ML IV SCH ×3 (05:13→21:03)
[2023-02-24] MEDS: MAGNESIUM 2GM PREMIX 50ML 50 ML IV PRN (05:14)
[2023-02-24] MEDS: IPRATROPIUM/ALBUTEROL SULFATE 3 ML SOLUTION IH SCH ×3 (07:14→19:22)
[2023-02-24] MEDS: FAMOTIDINE 20MG VIAL IV SCH (09:24)
[2023-02-24] MEDS: AMLODIPINE 5 MG TAB PO SCH (09:24)
[2023-02-24] MEDS: POLYETHYLENE GLYCOL 3350 17 GM POWD.PACK PO SCH (09:25)
[2023-02-24] MEDS: CARVEDILOL 12.5 MG TABLET PO SCH ×2 (09:25→20:25)
[2023-02-24] MEDS ORDERED: MAGNESIUM 2GM PREMIX 50ML 50 ML IV SCH (10:00)
[2023-02-24] MEDS ORDERED: POTASSIUM CHLORIDE 20MEQ/100ML 100 ML IV ONE (10:00)
[2023-02-24 17:17] LABS: MAGNESIUM 2.2 mg/dL (1.80-2.40); POTASSIUM 4.4 mmol/L (3.5-5.1)
[2023-02-25] VITALS (16 sets, daily range): BP systolic 111–142; BP diastolic 47–86; PULSE 64–83; RESP 18–20; O2SAT 92–99
[2023-02-25] MEDS: IPRATROPIUM/ALBUTEROL SULFATE 3 ML SOLUTION IH SCH ×5 (00:21→23:16)
[2023-02-25 03:52] LABS: HEMATOCRIT 30.2 % (42-54); MEAN CORPUSCULAR HEMOGLOBIN 32.5 pg (27.0-33.0); MEAN CORPUSCULAR HGB CONC 32.5 g/dL (32.0-36.0); RED BLOOD CELL COUNT(AUTO) 3.02 MIL/uL (4.50-6.20); RED CELL DISTRIBUTION WIDTH 12.1 % (11.0-15.5); WHITE BLOOD COUNT (AUTO) 11.8 K/uL (4.8-10.8)
[2023-02-25 04:13] LABS: BILIRUBIN,TOTAL 0.3 mg/dL (0.2-1.0); CREATININE 1.4 mg/dL (0.5-1.5); MAGNESIUM 2.1 mg/dL (1.80-2.40); TOTAL PROTEIN, SERUM 6.9 g/dL (6.0-8.3)
[2023-02-25] MEDS: ZOSYN 3.375GM +NS 50ML IV SCH ×3 (05:10→21:52)
[2023-02-25] MEDS: FAMOTIDINE 20MG VIAL IV SCH (10:21)
[2023-02-25] MEDS: POLYETHYLENE GLYCOL 3350 17 GM POWD.PACK PO SCH (10:21)
[2023-02-25] MEDS: CARVEDILOL 12.5 MG TABLET PO SCH ×2 (10:22→21:51)
[2023-02-25] MEDS: AMLODIPINE 5 MG TAB PO SCH (10:23)
[2023-02-25] MEDS: HEPARIN 5,000 UNIT VIAL SQ SCH ×2 (13:26→23:36)
[2023-02-25] MEDS: HALOPERIDOL INJ 5 MG/ML VIAL IM PRN (21:51)
[2023-02-25] MEDS: DIAZEPAM 5 MG TABLET NG PRN (22:44)
[2023-02-26] VITALS (14 sets, daily range): BP systolic 113–145; BP diastolic 45–83; PULSE 56–84; RESP 17–20; O2SAT 97–100
[2023-02-26 04:28] LABS: HEMATOCRIT 30.2 % (42-54); MEAN CORPUSCULAR HGB CONC 32.1 g/dL (32.0-36.0); MEAN CORPUSCULAR VOLUME 99.7 fL (79-99); PLATELET COUNT (AUTO) 352 K/uL (130-400); RED BLOOD CELL COUNT(AUTO) 3.03 MIL/uL (4.50-6.20)
[2023-02-26 04:52] LABS: ALBUMIN 2.1 g/dL (3.5-5.0); BILIRUBIN,TOTAL 0.2 mg/dL (0.2-1.0); CREATININE 1.3 mg/dL (0.5-1.5); POTASSIUM 3.5 mmol/L (3.5-5.1)
[2023-02-26 05:35] LABS: BAND NEUTROPHILS % (MANUAL) 3 % (0-2); BASOPHILS % (MANUAL) 1 % (0-2); LYMPHOCYTES % (MANUAL) 17 % (22-44); MAN.DIFF COMMENT-IMPRESSION MANUAL DIFFERENTIAL; MONOCYTES % (MANUAL) 7 % (2-9); SEGMENTED NEUTROPHILS % 72 % (40-70); TOTAL CELLS COUNTED 100; WBC MORPHOLOGY SMUDGE CELLS 1+
[2023-02-26] MEDS: ZOSYN 3.375GM +NS 50ML IV SCH ×3 (05:40→21:58)
[2023-02-26] MEDS: IPRATROPIUM/ALBUTEROL SULFATE 3 ML SOLUTION IH SCH ×4 (06:36→23:52)
[2023-02-26] MEDS: POTASSIUM CHLORIDE 10% ELIXIR 20 MEQ/15 ML UDCUP PO PRN (09:09)
[2023-02-26] MEDS: POLYETHYLENE GLYCOL 3350 17 GM POWD.PACK PO SCH (09:09)
[2023-02-26] MEDS: FAMOTIDINE 20MG VIAL IV SCH (09:09)
[2023-02-26] MEDS: AMLODIPINE 5 MG TAB PO SCH (09:10)
[2023-02-26] MEDS: CARVEDILOL 12.5 MG TABLET PO SCH ×2 (09:10→19:12)
[2023-02-26] MEDS: HEPARIN 5,000 UNIT VIAL SQ SCH (12:59)
[2023-02-26] MEDS: HALOPERIDOL INJ 5 MG/ML VIAL IM PRN ×2 (14:06→22:16)
[2023-02-26] MEDS: DIAZEPAM 5 MG TABLET NG PRN (19:12)
[2023-02-27] VITALS (12 sets, daily range): BP systolic 108–124; BP diastolic 58–77; PULSE 61–100; RESP 18–24; O2SAT 95–97
[2023-02-27] MEDS: DIAZEPAM 5 MG TABLET NG PRN (03:50)
[2023-02-27] MEDS: HEPARIN 5,000 UNIT VIAL SQ SCH ×2 (03:52→12:20)
[2023-02-27 05:24] LABS: BASOPHILS # (AUTO) 0.05 K/uL (0.00-0.20); BASOPHILS % (AUTO) 0.5 % (0.0-5.0); EOSINOPHILS # (AUTO) 0.19 K/uL (0.00-0.70); EOSINOPHILS % (AUTO) 1.8 % (0.0-8.0); HEMATOCRIT 30.3 % (42-54); IMMATURE GRANULOCYTE ABSOLUTE 0.13 K/uL (0-1); LYMPHOCYTES # (AUTO) 1.7 K/uL (1.0-4.8); LYMPHOCYTES % (AUTO) 15.8 % (21.0-51.0); MEAN CORPUSCULAR HGB CONC 32.3 g/dL (32.0-36.0); MONOCYTES # (AUTO) 0.8 K/uL (0.1-1.0); MONOCYTES % (AUTO) 7.5 % (3.0-13.0); NEUTROPHILS # (AUTO) 7.8 K/uL (1.8-7.7); NEUTROPHILS % (AUTO) 73.2 % (40.0-77.0); PLATELET COUNT (AUTO) 396 K/uL (130-400); RED BLOOD CELL COUNT(AUTO) 3.06 MIL/uL (4.50-6.20); WHITE BLOOD COUNT (AUTO) 10.6 K/uL (4.8-10.8)
[2023-02-27 05:49] LABS: CREATININE 1.3 mg/dL (0.5-1.5); POTASSIUM 3.5 mmol/L (3.5-5.1)
[2023-02-27 05:53] LABS: PHOSPHORUS 4.3 mg/dL (2.5-4.9)
[2023-02-27] MEDS: ZOSYN 3.375GM +NS 50ML IV SCH ×3 (06:15→21:13)
[2023-02-27] MEDS: IPRATROPIUM/ALBUTEROL SULFATE 3 ML SOLUTION IH SCH ×4 (06:46→23:32)
[2023-02-27] MEDS: POLYETHYLENE GLYCOL 3350 17 GM POWD.PACK PO SCH (08:49)
[2023-02-27] MEDS: CARVEDILOL 12.5 MG TABLET PO SCH ×2 (08:50→21:12)
[2023-02-27] MEDS: FAMOTIDINE 20MG VIAL IV SCH (08:50)
[2023-02-27] MEDS: AMLODIPINE 5 MG TAB PO SCH (08:50)
[2023-02-28] VITALS (14 sets, daily range): BP systolic 107–146; BP diastolic 56–92; PULSE 69–108; RESP 18–22; O2SAT 95–99
[2023-02-28] MEDS: HEPARIN 5,000 UNIT VIAL SQ SCH ×2 (00:30→12:23)
[2023-02-28] MEDS: ZOSYN 3.375GM +NS 50ML IV SCH ×3 (05:24→21:06)
[2023-02-28] MEDS: IPRATROPIUM/ALBUTEROL SULFATE 3 ML SOLUTION IH SCH ×3 (06:52→18:00)
[2023-02-28] MEDS: FAMOTIDINE 20MG VIAL IV SCH (09:53)
[2023-02-28] MEDS: CARVEDILOL 12.5 MG TABLET PO SCH ×2 (09:53→21:22)
[2023-02-28] MEDS: POLYETHYLENE GLYCOL 3350 17 GM POWD.PACK PO SCH (09:53)
[2023-02-28] MEDS: AMLODIPINE 5 MG TAB PO SCH (09:54)
[2023-02-28] MEDS: TRAZODONE HCL 100 MG TABLET PO SCH (21:21)
[2023-03-01] VITALS (13 sets, daily range): BP systolic 114–148; BP diastolic 68–94; PULSE 66–98; RESP 16–22; O2SAT 97–98
[2023-03-01] MEDS: IPRATROPIUM/ALBUTEROL SULFATE 3 ML SOLUTION IH SCH ×5 (01:00→23:08)
[2023-03-01] MEDS: HEPARIN 5,000 UNIT VIAL SQ SCH ×2 (02:42→12:45)
[2023-03-01] MEDS: ZOSYN 3.375GM +NS 50ML IV SCH ×3 (04:43→21:43)
[2023-03-01 05:25] LABS: BASOPHILS # (AUTO) 0.07 K/uL (0.00-0.20); BASOPHILS % (AUTO) 0.7 % (0.0-5.0); EOSINOPHILS # (AUTO) 0.17 K/uL (0.00-0.70); EOSINOPHILS % (AUTO) 1.6 % (0.0-8.0); HEMATOCRIT 34.4 % (42-54); IMMATURE GRANULOCYTE ABSOLUTE 0.07 K/uL (0-1); LYMPHOCYTES % (AUTO) 18.2 % (21.0-51.0); MEAN CORPUSCULAR HEMOGLOBIN 31.9 pg (27.0-33.0); MEAN CORPUSCULAR HGB CONC 32.8 g/dL (32.0-36.0); MEAN CORPUSCULAR VOLUME 97.2 fL (79-99); MONOCYTES # (AUTO) 1.1 K/uL (0.1-1.0); MONOCYTES % (AUTO) 10.1 % (3.0-13.0); NEUTROPHILS # (AUTO) 7.4 K/uL (1.8-7.7); NEUTROPHILS % (AUTO) 68.7 % (40.0-77.0); PLATELET COUNT (AUTO) 495 K/uL (130-400); RED BLOOD CELL COUNT(AUTO) 3.54 MIL/uL (4.50-6.20); RED CELL DISTRIBUTION WIDTH 12.1 % (11.0-15.5); WHITE BLOOD COUNT (AUTO) 10.7 K/uL (4.8-10.8)
[2023-03-01 05:33] LABS: CREATININE 1.7 mg/dL (0.5-1.5); POTASSIUM 3.9 mmol/L (3.5-5.1)
[2023-03-01] MEDS: FAMOTIDINE 20MG VIAL IV SCH (08:27)
[2023-03-01] MEDS: CARVEDILOL 12.5 MG TABLET PO SCH ×2 (08:28→21:43)
[2023-03-01] MEDS: POLYETHYLENE GLYCOL 3350 17 GM POWD.PACK PO SCH (08:28)
[2023-03-01] MEDS: AMLODIPINE 5 MG TAB PO SCH (08:28)
[2023-03-01] MEDS: TRAZODONE HCL 100 MG TABLET PO SCH (21:43)
[2023-03-02] VITALS (14 sets, daily range): BP systolic 111–144; BP diastolic 66–84; PULSE 71–99; RESP 16–22; O2SAT 96–100
[2023-03-02] MEDS: HEPARIN 5,000 UNIT VIAL SQ SCH ×2 (00:18→11:52)
[2023-03-02 04:27] LABS: BASOPHILS # (AUTO) 0.07 K/uL (0.00-0.20); BASOPHILS % (AUTO) 0.7 % (0.0-5.0); EOSINOPHILS # (AUTO) 0.23 K/uL (0.00-0.70); EOSINOPHILS % (AUTO) 2.4 % (0.0-8.0); HEMATOCRIT 33.7 % (42-54); IMMATURE GRANULOCYTE ABSOLUTE 0.07 K/uL (0-1); LYMPHOCYTES # (AUTO) 2.3 K/uL (1.0-4.8); LYMPHOCYTES % (AUTO) 23.8 % (21.0-51.0); MEAN CORPUSCULAR HEMOGLOBIN 32.2 pg (27.0-33.0); MEAN CORPUSCULAR HGB CONC 32.3 g/dL (32.0-36.0); MEAN CORPUSCULAR VOLUME 99.7 fL (79-99); MONOCYTES % (AUTO) 10.2 % (3.0-13.0); NEUTROPHILS % (AUTO) 62.2 % (40.0-77.0); PLATELET COUNT (AUTO) 478 K/uL (130-400); RED BLOOD CELL COUNT(AUTO) 3.38 MIL/uL (4.50-6.20); RED CELL DISTRIBUTION WIDTH 12.2 % (11.0-15.5); WHITE BLOOD COUNT (AUTO) 9.6 K/uL (4.8-10.8)
[2023-03-02 04:40] LABS: CREATININE 1.6 mg/dL (0.5-1.5); POTASSIUM 3.6 mmol/L (3.5-5.1)
[2023-03-02] MEDS: ZOSYN 3.375GM +NS 50ML IV SCH (07:05)
[2023-03-02] MEDS: IPRATROPIUM/ALBUTEROL SULFATE 3 ML SOLUTION IH SCH ×4 (07:05→23:19)
[2023-03-02] MEDS: POLYETHYLENE GLYCOL 3350 17 GM POWD.PACK PO SCH (09:06)
[2023-03-02] MEDS: AMLODIPINE 5 MG TAB PO SCH (09:06)
[2023-03-02] MEDS: CARVEDILOL 12.5 MG TABLET PO SCH ×2 (09:07→21:15)
[2023-03-02] MEDS: FAMOTIDINE 20MG VIAL IV SCH (09:07)
[2023-03-02] MEDS: HALOPERIDOL INJ 5 MG/ML VIAL IM PRN (16:24)
[2023-03-02] MEDS: TRAZODONE HCL 100 MG TABLET PO SCH (21:14)
[2023-03-03] VITALS (14 sets, daily range): BP systolic 120–135; BP diastolic 65–82; PULSE 61–94; RESP 16–20; O2SAT 95–99
[2023-03-03] MEDS: HALOPERIDOL INJ 5 MG/ML VIAL IM PRN (00:37)
[2023-03-03] MEDS: HEPARIN 5,000 UNIT VIAL SQ SCH ×2 (02:13→11:13)
[2023-03-03] MEDS: IPRATROPIUM/ALBUTEROL SULFATE 3 ML SOLUTION IH SCH ×4 (07:06→23:15)
[2023-03-03] MEDS: CARVEDILOL 12.5 MG TABLET PO SCH ×2 (07:49→20:45)
[2023-03-03] MEDS: AMLODIPINE 5 MG TAB PO SCH (07:49)
[2023-03-03] MEDS: FAMOTIDINE 20MG VIAL IV SCH (07:50)
[2023-03-03] MEDS: POLYETHYLENE GLYCOL 3350 17 GM POWD.PACK PO SCH (07:50)
[2023-03-03] MEDS: TRAZODONE HCL 100 MG TABLET PO SCH (20:45)
[2023-03-04] VITALS (11 sets, daily range): BP systolic 108–142; BP diastolic 66–96; PULSE 66–95; RESP 17–22; O2SAT 97–99
[2023-03-04] MEDS: HEPARIN 5,000 UNIT VIAL SQ SCH ×2 (00:38→13:36)
[2023-03-04 04:57] LABS: BASOPHILS # (AUTO) 0.07 K/uL (0.00-0.20); EOSINOPHILS # (AUTO) 0.12 K/uL (0.00-0.70); EOSINOPHILS % (AUTO) 1.7 % (0.0-8.0); HEMATOCRIT 33.7 % (42-54); IMMATURE GRANULOCYTE ABSOLUTE 0.05 K/uL (0-1); LYMPHOCYTES # (AUTO) 2.3 K/uL (1.0-4.8); LYMPHOCYTES % (AUTO) 33.1 % (21.0-51.0); MEAN CORPUSCULAR HGB CONC 32.6 g/dL (32.0-36.0); MONOCYTES # (AUTO) 0.7 K/uL (0.1-1.0); MONOCYTES % (AUTO) 10.2 % (3.0-13.0); NEUTROPHILS # (AUTO) 3.8 K/uL (1.8-7.7); NEUTROPHILS % (AUTO) 53.3 % (40.0-77.0); PLATELET COUNT (AUTO) 461 K/uL (130-400); RED BLOOD CELL COUNT(AUTO) 3.44 MIL/uL (4.50-6.20); RED CELL DISTRIBUTION WIDTH 11.9 % (11.0-15.5); WHITE BLOOD COUNT (AUTO) 7.1 K/uL (4.8-10.8)
[2023-03-04 05:30] LABS: ALBUMIN 2.6 g/dL (3.5-5.0); BILIRUBIN,TOTAL 0.3 mg/dL (0.2-1.0); CREATININE 1.5 mg/dL (0.5-1.5); POTASSIUM 3.6 mmol/L (3.5-5.1)
[2023-03-04] MEDS: IPRATROPIUM/ALBUTEROL SULFATE 3 ML SOLUTION IH SCH ×3 (07:08→19:15)
[2023-03-04] MEDS: POLYETHYLENE GLYCOL 3350 17 GM POWD.PACK PO SCH (09:31)
[2023-03-04] MEDS: CARVEDILOL 12.5 MG TABLET PO SCH ×2 (09:32→21:04)
[2023-03-04] MEDS: FAMOTIDINE 20MG VIAL IV SCH (09:32)
[2023-03-04] MEDS: AMLODIPINE 5 MG TAB PO SCH (09:32)
[2023-03-04] MEDS ORDERED: LORAZEPAM 2 MG/ML 1 ML VIAL IVP PRN (16:00)
[2023-03-04] MEDS ORDERED: PHARMACY COMMUNICATION MISC SCH (16:00)
[2023-03-04] MEDS ORDERED: CHLORDIAZEPOXIDE HCL 25 MG CAP PO PRN ×2 (16:00)
[2023-03-04] MEDS ORDERED: PHARMACY COMMUNICATION MISC PRN (16:00)
[2023-03-04] MEDS: TRAZODONE HCL 100 MG TABLET PO SCH (21:04)
[2023-03-05] VITALS (15 sets, daily range): BP systolic 111–141; BP diastolic 67–88; PULSE 62–88; RESP 16–20; O2SAT 96–100
[2023-03-05] MEDS: IPRATROPIUM/ALBUTEROL SULFATE 3 ML SOLUTION IH SCH ×5 (00:14→23:15)
[2023-03-05] MEDS: HALOPERIDOL INJ 5 MG/ML VIAL IM PRN ×2 (02:33→18:59)
[2023-03-05] MEDS: POLYETHYLENE GLYCOL 3350 17 GM POWD.PACK PO SCH (09:30)
[2023-03-05] MEDS: AMLODIPINE 5 MG TAB PO SCH (09:32)
[2023-03-05] MEDS: CARVEDILOL 12.5 MG TABLET PO SCH ×2 (09:33→20:01)
[2023-03-05] MEDS: FAMOTIDINE 20MG VIAL IV SCH (09:33)
[2023-03-05] MEDS: HEPARIN 5,000 UNIT VIAL SQ SCH ×2 (12:45)
[2023-03-05 13:03] LABS: MEAN CORPUSCULAR HEMOGLOBIN 31.7 pg (27.0-33.0); MEAN CORPUSCULAR VOLUME 95.9 fL (79-99); PLATELET COUNT (AUTO) 424 K/uL (130-400); RED BLOOD CELL COUNT(AUTO) 3.44 MIL/uL (4.50-6.20); RED CELL DISTRIBUTION WIDTH 12.1 % (11.0-15.5)
[2023-03-05 13:27] LABS: CREATININE 1.3 mg/dL (0.5-1.5); PHOSPHORUS 4.3 mg/dL (2.5-4.9); POTASSIUM 3.5 mmol/L (3.5-5.1)
[2023-03-05 14:21] LABS: EOSINOPHILS % (MANUAL) 2 % (1-6); LYMPHOCYTES % (MANUAL) 33 % (22-44); MONOCYTES % (MANUAL) 7 % (2-9); PLATELET MORPHOLOGY COMMENT ADEQUATE; REACTIVE LYMPHOCYTES 1 % (0-0); SEGMENTED NEUTROPHILS % 57 % (40-70); TOTAL CELLS COUNTED 100
[2023-03-05] MEDS ORDERED: TRAZ-258 PO (14:32)
[2023-03-05] MEDS ORDERED: AMLO5TAB4 PO (14:32)
[2023-03-05] MEDS ORDERED: CARV12.580 PO (14:32)
[2023-03-05] MEDS: TRAZODONE HCL 100 MG TABLET PO SCH (19:58)
[2023-03-06] VITALS (11 sets, daily range): BP systolic 109–149; BP diastolic 50–84; PULSE 70–95; RESP 18–21; O2SAT 97–100
[2023-03-06] MEDS: HEPARIN 5,000 UNIT VIAL SQ SCH ×3 (00:25→23:22)
[2023-03-06] MEDS: HALOPERIDOL INJ 5 MG/ML VIAL IM PRN ×2 (02:09→15:53)
[2023-03-06 05:13] LABS: CREATININE 1.6 mg/dL (0.5-1.5); MAGNESIUM 1.6 mg/dL (1.80-2.40); PHOSPHORUS 3.8 mg/dL (2.5-4.9); POTASSIUM 3.4 mmol/L (3.5-5.1)
[2023-03-06] MEDS: IPRATROPIUM/ALBUTEROL SULFATE 3 ML SOLUTION IH SCH ×4 (06:54→23:52)
[2023-03-06] MEDS: POLYETHYLENE GLYCOL 3350 17 GM POWD.PACK PO SCH (10:23)
[2023-03-06] MEDS: FAMOTIDINE 20MG VIAL IV SCH (10:23)
[2023-03-06] MEDS: AMLODIPINE 5 MG TAB PO SCH (10:24)
[2023-03-06] MEDS: CARVEDILOL 12.5 MG TABLET PO SCH ×2 (10:36→20:46)
[2023-03-06] MEDS ORDERED: MAGNESIUM OXIDE 400 MG TABLET PO ONE (16:30)
[2023-03-06] MEDS: TRAZODONE HCL 100 MG TABLET PO SCH (20:46)
[2023-03-07] VITALS (13 sets, daily range): BP systolic 107–137; BP diastolic 59–81; PULSE 80–121; RESP 14–20; O2SAT 97–100
[2023-03-07] MEDS: HALOPERIDOL INJ 5 MG/ML VIAL IM PRN (01:22)
[2023-03-07] MEDS: IPRATROPIUM/ALBUTEROL SULFATE 3 ML SOLUTION IH SCH ×4 (06:22→23:32)
[2023-03-07 06:27] LABS: ALBUMIN 2.8 g/dL (3.5-5.0); BILIRUBIN,TOTAL 0.4 mg/dL (0.2-1.0); CREATININE 1.5 mg/dL (0.5-1.5); MAGNESIUM 1.8 mg/dL (1.80-2.40); POTASSIUM 3.4 mmol/L (3.5-5.1); TOTAL PROTEIN, SERUM 7.7 g/dL (6.0-8.3)
[2023-03-07] MEDS: POTASSIUM CHLORIDE 10% ELIXIR 20 MEQ/15 ML UDCUP PO PRN ×2 (06:41→08:50)
[2023-03-07] MEDS: POLYETHYLENE GLYCOL 3350 17 GM POWD.PACK PO SCH (08:49)
[2023-03-07] MEDS: MAGNESIUM 2GM PREMIX 50ML 50 ML IV PRN (08:49)
[2023-03-07] MEDS: AMLODIPINE 5 MG TAB PO SCH (08:51)
[2023-03-07] MEDS: FAMOTIDINE 20MG VIAL IV SCH (08:51)
[2023-03-07] MEDS: CARVEDILOL 12.5 MG TABLET PO SCH ×2 (08:51→20:06)
[2023-03-07] MEDS: HEPARIN 5,000 UNIT VIAL SQ SCH (11:31)
[2023-03-07] MEDS ORDERED: KCL 20 MEQ ERTAB PO ONE (14:00)
[2023-03-07] MEDS: TRAZODONE HCL 100 MG TABLET PO SCH (20:06)
[2023-03-08] VITALS (12 sets, daily range): BP systolic 114–136; BP diastolic 67–94; PULSE 72–99; RESP 17–19; O2SAT 97–100
[2023-03-08] MEDS: HEPARIN 5,000 UNIT VIAL SQ SCH ×3 (00:35→23:01)
[2023-03-08] MEDS: IPRATROPIUM/ALBUTEROL SULFATE 3 ML SOLUTION IH SCH ×4 (06:55→23:30)
[2023-03-08] MEDS: FAMOTIDINE 20MG VIAL IV SCH (08:22)
[2023-03-08] MEDS: AMLODIPINE 5 MG TAB PO SCH (08:23)
[2023-03-08] MEDS: CARVEDILOL 12.5 MG TABLET PO SCH ×2 (08:23→20:23)
[2023-03-08] MEDS: POLYETHYLENE GLYCOL 3350 17 GM POWD.PACK PO SCH (08:24)
[2023-03-08] MEDS: ACETAMINOPHEN 500 MG TABLET PO PRN (14:42)
[2023-03-08] MEDS: TRAZODONE HCL 100 MG TABLET PO SCH (20:23)
[2023-03-08] MEDS: ONDANSETRON 4MG INJ IV PRN (23:01)
[2023-03-09] VITALS (22 sets, daily range): BP systolic 106–143; BP diastolic 63–84; PULSE 64–91; RESP 16–18; O2SAT 97–100
[2023-03-09] MEDS: IPRATROPIUM/ALBUTEROL SULFATE 3 ML SOLUTION IH SCH ×4 (06:44→23:23)
[2023-03-09 07:56] LABS: ALBUMIN 2.6 g/dL (3.5-5.0); BILIRUBIN,TOTAL 0.4 mg/dL (0.2-1.0); CREATININE 1.6 mg/dL (0.5-1.5); POTASSIUM 3.7 mmol/L (3.5-5.1); TOTAL PROTEIN, SERUM 7.4 g/dL (6.0-8.3)
[2023-03-09] MEDS: AMLODIPINE 5 MG TAB PO SCH (09:13)
[2023-03-09] MEDS: FAMOTIDINE 20MG VIAL IV SCH (09:13)
[2023-03-09] MEDS: POLYETHYLENE GLYCOL 3350 17 GM POWD.PACK PO SCH (09:14)
[2023-03-09] MEDS: KCL 20 MEQ ERTAB PO PRN ×2 (09:14→14:37)
[2023-03-09] MEDS: CARVEDILOL 12.5 MG TABLET PO SCH ×2 (09:15→21:00)
[2023-03-09] MEDS: HEPARIN 5,000 UNIT VIAL SQ SCH (14:30)
[2023-03-09] MEDS: HALOPERIDOL INJ 5 MG/ML VIAL IM PRN (15:24)
[2023-03-09] MEDS: TRAZODONE HCL 100 MG TABLET PO SCH (20:57)
[2023-03-10] VITALS (14 sets, daily range): BP systolic 113–136; BP diastolic 58–86; PULSE 60–105; RESP 16–21; O2SAT 97–100
[2023-03-10] MEDS: HEPARIN 5,000 UNIT VIAL SQ SCH ×2 (00:24→13:12)
[2023-03-10 05:41] LABS: CREATININE 1.6 mg/dL (0.5-1.5); POTASSIUM 3.6 mmol/L (3.5-5.1)
[2023-03-10] MEDS: KCL 20 MEQ ERTAB PO PRN ×2 (06:04→18:03)
[2023-03-10] MEDS: IPRATROPIUM/ALBUTEROL SULFATE 3 ML SOLUTION IH SCH ×4 (06:36→23:59)
[2023-03-10] MEDS: POLYETHYLENE GLYCOL 3350 17 GM POWD.PACK PO SCH (08:51)
[2023-03-10] MEDS: AMLODIPINE 5 MG TAB PO SCH (08:51)
[2023-03-10] MEDS: FAMOTIDINE 20MG VIAL IV SCH (08:51)
[2023-03-10] MEDS: CARVEDILOL 12.5 MG TABLET PO SCH ×2 (13:14→20:17)
[2023-03-10] MEDS: QUETIAPINE FUMARATE 25 MG TAB PO SCH (20:17)
[2023-03-10] MEDS: TRAZODONE HCL 100 MG TABLET PO SCH (20:21)
[2023-03-11] VITALS (9 sets, daily range): BP systolic 115–137; BP diastolic 63–84; PULSE 61–81; RESP 17–20; O2SAT 97–99
[2023-03-11] MEDS: HEPARIN 5,000 UNIT VIAL SQ SCH ×3 (00:02→23:24)
[2023-03-11] MEDS: IPRATROPIUM/ALBUTEROL SULFATE 3 ML SOLUTION IH SCH ×4 (06:49→23:13)
[2023-03-11] MEDS: CARVEDILOL 12.5 MG TABLET PO SCH ×2 (10:42→20:19)
[2023-03-11] MEDS: POLYETHYLENE GLYCOL 3350 17 GM POWD.PACK PO SCH (10:42)
[2023-03-11] MEDS: AMLODIPINE 5 MG TAB PO SCH (10:42)
[2023-03-11] MEDS: FAMOTIDINE 20MG VIAL IV SCH (10:42)
[2023-03-11] MEDS: QUETIAPINE FUMARATE 25 MG TAB PO SCH (20:19)
[2023-03-11] MEDS: TRAZODONE HCL 100 MG TABLET PO SCH (20:19)
[2023-03-12 00:36] VITALS: BP 115/63; PULSE 62; RESP 19
[2023-03-12 05:37] VITALS: BP 110/53; PULSE 88; RESP 18
[2023-03-12 05:57] LABS: BASOPHILS # (AUTO) 0.06 K/uL (0.00-0.20); BASOPHILS % (AUTO) 0.9 % (0.0-5.0); EOSINOPHILS # (AUTO) 0.09 K/uL (0.00-0.70); EOSINOPHILS % (AUTO) 1.3 % (0.0-8.0); HEMATOCRIT 32.7 % (42-54); IMMATURE GRANULOCYTE ABSOLUTE 0.03 K/uL (0-1); LYMPHOCYTES # (AUTO) 2.3 K/uL (1.0-4.8); LYMPHOCYTES % (AUTO) 33.9 % (21.0-51.0); MEAN CORPUSCULAR HEMOGLOBIN 31.1 pg (27.0-33.0); MEAN CORPUSCULAR HGB CONC 32.4 g/dL (32.0-36.0); MEAN CORPUSCULAR VOLUME 95.9 fL (79-99); MONOCYTES # (AUTO) 0.8 K/uL (0.1-1.0); MONOCYTES % (AUTO) 12.4 % (3.0-13.0); NEUTROPHILS # (AUTO) 3.4 K/uL (1.8-7.7); NEUTROPHILS % (AUTO) 51.1 % (40.0-77.0); PLATELET COUNT (AUTO) 243 K/uL (130-400); RED BLOOD CELL COUNT(AUTO) 3.41 MIL/uL (4.50-6.20); RED CELL DISTRIBUTION WIDTH 12.4 % (11.0-15.5); WHITE BLOOD COUNT (AUTO) 6.7 K/uL (4.8-10.8)
[2023-03-12 06:09] LABS: CREATININE 1.8 mg/dL (0.5-1.5); POTASSIUM 3.6 mmol/L (3.5-5.1)
[2023-03-12 07:04] VITALS: PULSE 69; RESP 19
[2023-03-12] MEDS: IPRATROPIUM/ALBUTEROL SULFATE 3 ML SOLUTION IH SCH ×2 (07:04→11:10)
[2023-03-12 08:00] VITALS: BP 133/74; PULSE 70; RESP 20; O2SAT 98
[2023-03-12 08:44] VITALS: BP 133/74
[2023-03-12] MEDS: CARVEDILOL 12.5 MG TABLET PO SCH (08:44)
[2023-03-12] MEDS: AMLODIPINE 5 MG TAB PO SCH (08:44)
[2023-03-12] MEDS: POLYETHYLENE GLYCOL 3350 17 GM POWD.PACK PO SCH (08:44)
[2023-03-12] MEDS: FAMOTIDINE 20MG VIAL IV SCH (08:44)
[2023-03-12 11:12] VITALS: PULSE 71; RESP 18
[2023-03-12] MEDS: HEPARIN 5,000 UNIT VIAL SQ SCH (11:43)
== END 2023-03-12 15:50 | disposition home or self-care (01) | DRG 917 ==
LOC: EDH 09:07 → EDHIP 09:08 → UNDOADMIN 13:21 → EDHIP 13:21 → 2BH 14:50 → 2AH 02-21 11:25 → 3AH 03-02 22:00
PROVIDERS: ADMIT Hospitalist; ATTEND Hospitalist
DX: T43.591A Poisoning by other antipsychotics and neuroleptics, accidental (unintentional), initial encounter (principal); G93.41 Metabolic encephalopathy; N17.0 Acute kidney failure with tubular necrosis; J69.0 Pneumonitis due to inhalation of food and vomit; F10.231 Alcohol dependence with withdrawal delirium; M62.82 Rhabdomyolysis; E87.20 Acidosis, unspecified; E87.1 Hypo-osmolality and hyponatremia; F02.83 Dementia in other diseases classified elsewhere, unspecified severity, with mood disturbance; F02.82 Dementia in other diseases classified elsewhere, unspecified severity, with psychotic disturbance; E83.41 Hypermagnesemia; E03.9 Hypothyroidism, unspecified; R94.31 Abnormal electrocardiogram [ECG] [EKG]; Y90.1 Blood alcohol level of 20-39 mg/100 ml; F10.229 Alcohol dependence with intoxication, unspecified; E11.22 Type 2 diabetes mellitus with diabetic chronic kidney disease; E78.5 Hyperlipidemia, unspecified; E86.0 Dehydration; F17.210 Nicotine dependence, cigarettes, uncomplicated; F20.9 Schizophrenia, unspecified; N30.90 Cystitis, unspecified without hematuria; F31.9 Bipolar disorder, unspecified; G20.A1 Parkinson's disease without dyskinesia, without mention of fluctuations; M54.9 Dorsalgia, unspecified; I12.9 Hypertensive chronic kidney disease with stage 1 through stage 4 chronic kidney disease, or unspecified chronic kidney disease; N18.9 Chronic kidney disease, unspecified; N28.1 Cyst of kidney, acquired; Z79.899 Other long term (current) drug therapy; Z81.8 Family history of other mental and behavioral disorders; Z82.0 Family history of epilepsy and other diseases of the nervous system; Z82.49 Family history of ischemic heart disease and other diseases of the circulatory system; Z91.81 History of falling; Z95.1 Presence of aortocoronary bypass graft; Y92.89 Other specified places as the place of occurrence of the external cause; Z79.84 Long term (current) use of oral hypoglycemic drugs
CPT/HCPCS: 36415; 36600; 70450; 71045; 73070; 74018; 76700; 76770; 80048; 80053; 80076; 80178; 80202; 80305; 81001; 81003; 82140; 82150; 82306; 82330; 82435; 82550; 82570; 82728; 82803; 82947; 82948; 83540; 83550; 83605; 83690; 83735; 83930; 83935; 83970; 84100; 84132; 84295; 84300; 84443; 84484; 84550; 85018; 85025; 85027; 85610; 85730; 87040; 87071; 87077; 87088; 87186; 87205; 87635; 87804; 92610; 93005; 93306; 93356; 94640; 94664; 94667; 94668; 96365; A6250; B4082; G0378; J0461; J0692; J1265; J1630; J1644; J1756; J2060; J2270; J2405; J2543; J3360; J3411; J3475; J3490; J7030; J7050; J7070; 3370; A4600; J3370